=== PATIENT | female | born 1955 | race Caucasian/White ===

== ENCOUNTER → 2021-10-03 | Outpatient (CLI) | payer MEDICARE ==
[~2021-10-03] MED LIST: ACCUPRIL 20 MG20 MG PO; CYCLOBENZAPRINE10 MG PO; DULOXETINE HCL60 MG PO; GLUCOPHAGE 500500 MG PO; HYDROCODON-ACE1 EAC2 PO; LAMOTRIGINE100 MG PO; LEVOTHYROXINE75 MCG PO; MELATONIN10 MG PO; OMEPRAZOLE20 MG PO; QUETIAPINE FUM200 MG PO
[2021-10-03 10:12] LABS: HEMOGLOBIN 14.6 gm/dl (12.3-15.3); RED BLOOD COUNT 4.56 M/UL (4.00-5.10); WHITE BLOOD COUNT 7.9 K/UL (4.5-11.0)
== END ==
LOC: OPSV2 09:00 → EDSTATUS 09:00 → OPSV2 09:21
PROVIDERS: Orthopaedic Surgery
DX: Z01.818 Encounter for other preprocedural examination (principal); M16.11 Unilateral primary osteoarthritis, right hip; I10 Essential (primary) hypertension; E11.9 Type 2 diabetes mellitus without complications; I77.819 Aortic ectasia, unspecified site; R91.8 Other nonspecific abnormal finding of lung field
CPT/HCPCS: 71046; 80048; 83036; 85027; 93005